=== PATIENT | male | born 1995 | race Caucasian/White ===

== ENCOUNTER 2019-03-16 12:18 | Observation (INO) ==
[2019-03-16] MEDS ORDERED: Ketorolac 30 MG/ML VIAL IVP ONE (13:01)
[2019-03-16] MEDS ORDERED: 0.9 % Sodium Chloride 1,000 ML IVC ONE ×2 (13:01→16:33)
[2019-03-16 13:16] LABS: Bilirubin,Urine Negative (Negative); Blood,Urine Large (Negative); Clarity,Urine Cloudy (Clear); Color,Urine Yellow (Yellow); Glucose,Urine (UA) Normal (Normal); Ketones,Urine Trace mg/dL (Negative); Leukocyte Esterase,Urine Small (Negative); Nitrite,Urine Negative (Negative); Protein,Urine 30 mg/dL (Neg-Trace); Specific Gravity,Urine 1.025 (1.010-1.025); Urobilinogen,Urine Normal (Normal)
[2019-03-16 13:18] LABS: Hyaline Casts,Urine None Seen per lpf (None-Few)
[2019-03-16 13:29] LABS: Basophils % 0.4 %; Eosinophils # 0.1 K/mcL (0.0-0.6); Eosinophils % 0.6 %; Hematocrit 42.2 % (37.5-50.1); Hemoglobin 14.6 g/dL (12.9-16.9); Immature Granulocytes % 0.5 % (0-4); Lymphocytes # 1.1 K/mcL (0.6-4.6); Lymphocytes % 10.3 %; Mean Corpuscular HGB Conc 34.6 g/dL (31.6-35.5); Mean Corpuscular Volume 83.7 fL (83.0-100.0); Mean Platelet Volume 10.4 fL (9.4-12.4); Monocytes # 0.5 K/mcL (0.0-1.3); Monocytes % 4.3 %; Neutrophils # 8.9 K/mcL (1.6-8.9); Platelet Count 244 K/mcL (140-400); Red Blood Count 5.04 M/mcL (4.19-5.50); Red Cell Distribution Width 12.1 % (11.5-14.5); Segmented Neutrophils % 83.9 %; White Blood Count 10.6 K/mcL (4.3-11.1)
[2019-03-16 13:35] LABS: Squamous Epithelial Cell,Urine Few per lpf (None-Few)
[2019-03-16 13:36] LABS: RBC,Urine TNTC per hpf (0-3)
[2019-03-16 13:37] LABS: Alanine Aminotransferase 28 Units/L (7-52); Albumin 4.7 g/dL (3.5-5.7); Albumin/Globulin Ratio 1.6 (1.1-2.2); Alkaline Phosphatase 121 Units/L (34-104); Amylase 85 Units/L (29-103); Aspartate Amino Transferase 18 Units/L (13-39); BUN/Creatinine Ratio 17 (6-26); Bacteria,Urine Few per hpf (None-Few); Bilirubin,Direct 0.1 mg/dL (0.0-0.2); Bilirubin,Indirect 0.3 mg/dL (0.0-1.0); Bilirubin,Total 0.4 mg/dL (0.3-1.0); Blood Urea Nitrogen 18 mg/dL (6-20); Calcium 9.9 mg/dL (8.6-10.3); Carbon Dioxide 28 mEq/L (23-29); Chloride 104 mEq/L (98-107); Globulin 2.9 g/dL (2.4-3.5); Glucose 98 mg/dL (70-105); Lipase 13 Units/L (11-82); Osmolality,Calculated 298 (280-300); Potassium 3.5 mEq/L (3.5-5.1); Sodium 143 mEq/L (136-145); Total Protein 7.6 g/dL (6.4-8.9); eGFR For African Americans > 60 (> 60); eGFR For Non-African Americans > 60 (> 60)
[2019-03-16] MEDS ORDERED: *HR* HYDROcodone/Acet 7.5/325 mg TABLET PO ONE (18:02)
[2019-03-16] MEDS ORDERED: Ketorolac 15 MG/ML VIAL IVP PRN (23:08)
[2019-03-16] MEDS ORDERED: 0.9 % Sodium Chloride 1,000 ML IVC SCH (23:08)
[2019-03-16] MEDS ORDERED: *HR* Promethazine 25 MG/ML VIAL IVP PRN (23:08)
[2019-03-16] MEDS ORDERED: Naloxone 0.4 MG/ML INJ IVP PRN (23:08)
[2019-03-16] MEDS ORDERED: *HR* HYDROcodone/Acet 5/325 mg TABLET PO PRN (23:08)
[2019-03-17] MEDS ORDERED: *HR* Propofol 200 MG/20 ML VIAL IVP ONE (16:15)
[2019-03-17] MEDS ORDERED: *HR* Midazolam HCl 2 MG/2 ML VIAL ONE (16:15)
[2019-03-17] MEDS ORDERED: Ondansetron 4 MG/2 ML VIAL ONE (16:15)
[2019-03-17] MEDS ORDERED: *HR* FentaNYL (PF) 100 MCG/2 ML VIAL ONE (16:17)
[2019-03-17] MEDS ORDERED: Isovue-300 50ML VIAL ONE (16:26)
[2019-03-17] MEDS ORDERED: levoFLOXacin 500 MG/100 ML 500 MG/100 ML BAG IVPB STA (16:38)
[2019-03-17] MEDS ORDERED: *HR* HYDROmorphone (PF) 1 MG/ML SYRINGE IVP PRN (16:43)
[2019-03-17] MEDS ORDERED: *HR* OxyCODONE Immed Rel 5 MG TABLET PO PRN (16:43)
[2019-03-17] MEDS ORDERED: Ondansetron 4 MG/2 ML VIAL IVP ONE (16:43)
[2019-03-17] MEDS ORDERED: Naloxone 0.4 MG/ML INJ IVP PRN (18:18)
[2019-03-17] MEDS ORDERED: *HR* Promethazine 25 MG/ML VIAL IVP PRN (18:18)
[2019-03-17] MEDS ORDERED: *HR* HYDROcodone/Acet 5/325 mg TABLET PO PRN (18:18)
[2019-03-17] MEDS ORDERED: 0.9 % Sodium Chloride 1,000 ML IVC SCH (18:18)
[2019-03-17] MEDS ORDERED: Ketorolac 15 MG/ML VIAL IVP PRN (18:18)
[2019-03-17] MEDS ORDERED: levoFLOXacin 500 MG/100 ML 500 MG/100 ML BAG IVPB PRN (20:19)
[2019-03-17 20:49] VITALS: BP 118/73
[2019-03-21 18:58] LABS: Calculi Mass 20 mg
== END 2019-03-17 21:05 | disposition home or self-care (01) ==
LOC: EMEROOARM 12:18 → 3ANU 12:18
PROVIDERS: ADMIT Internal Medicine; ATTEND Urology